=== PATIENT | female | born 1965 | race Caucasian/White ===

== ENCOUNTER 2017-08-01 04:30 | Emergency (ER) | payer MEDICAID, OTHER ==
[~2017-08-01] VITALS: Ht 157.5 cm; Wt 104.3 kg
[2017-08-01 04:30] VITALS: BP 122/82
[~2017-08-01 04:30] MED LIST: ALBUTEROL SULF8.5 GM INH; ATIVAN0.5 MG ORAL; EMBRIL SQ; NORCO 5-325 TA1 EACH ORAL; TRAZODONE HCL100 MG ORAL
[2017-08-01] MEDS ORDERED: HYDROmorphone 1mg/ml Carpuject IVP ONE (04:45)
[2017-08-01 05:01] LABS: BASOPHILS % (AUTO) 0.8 % (0.0-2.0); EOSINOPHILS % (AUTO) 1.7 % (0.0-3.0); HEMATOCRIT 44.4 % (37.0-47.0); HEMOGLOBIN 15.6 G/DL (12.0-16.0); LYMPHOCYTES % (AUTO) 38.4 % (20.0-45.0); MEAN CORPUSCULAR VOLUME 96 FL (80-99); MONOCYTES % (AUTO) 7.6 % (1.0-10.0); NEUTROPHILS % (AUTO) 51.5 % (45.0-75.0); PLATELET COUNT 221 K/UL (150-450); RED BLOOD COUNT 4.62 M/UL (4.20-5.40); RED CELL DISTRIBUTION WIDTH 10.4 % (11.6-14.8)
[2017-08-01 05:05] LABS: APPEARANCE,URINE CLEAR; BILIRUBIN, URINE NEGATIVE (NEGATIVE); COLOR,URINE YELLOW; GLUCOSE, URINE (UA) 4+ (NEGATIVE); KETONES,URINE 1+ (NEGATIVE); LEUKOCYTE ESTERASE ,URINE NEGATIVE (NEGATIVE); NITRITE,URINE NEGATIVE (NEGATIVE); PH,URINE 5 (4.5-8.0); PROTEIN,URINE 2+ (NEGATIVE); UROBILINOGEN,URINE 1 MG/DL (0.0-1.0)
[2017-08-01 05:19] LABS: ANION GAP 9 mmol/L (5-15); BLOOD UREA NITROGEN 10 mg/dL (7-18); CARBON DIOXIDE 25 MMOL/L (21-32); CHLORIDE 106 MMOL/L (98-107); CREATININE 0.7 MG/DL (0.55-1.30); POTASSIUM 3.4 MMOL/L (3.5-5.1); SODIUM 140 MMOL/L (136-145)
[2017-08-01 05:23] LABS: ALANINE AMINOTRANSFERASE 93 U/L (12-78); ALBUMIN 3.5 G/DL (3.4-5.0); ALBUMIN/GLOBULIN RATIO 0.6 (1.0-2.7); ALKALINE PHOSPHATASE 116 U/L (46-116); ASPARTATE AMINO TRANSFERASE 66 U/L (15-37); BILIRUBIN,TOTAL 0.4 MG/DL (0.2-1.0)
[2017-08-01 05:30] VITALS: BP 119/78
--- NOTE | 2017-08-01 05:39 | Emergency Room Report ---
History of Present Illness General Chief Complaint: Abdominal Pain Source: Patient Present Illness HPI This is a 51-year-old female with chief complaint abdominal pain with nausea vomiting. His been ongoing for 6 hours. Vomiting is nonbloody nonbilious. Pain is severe and crampy. 10 out of 10. No diarrhea. No fever. Second complaint is she has left forearm pain. She fell 2 weeks ago and has some bruising to the left forearm. Bruising got better but pain still there. No new trauma since then Allergies: Coded Allergies: PENICILLINS (Verified Allergy, Unknown, 02/26/12) Patient History Past Medical History: see triage record, old chart reviewed Past Surgical History: other Pertinent Family History: none Social History: Denies: smoking Last Menstrual Period: UNK Now: No Immunizations: other Reviewed Nursing Documentation: PMH: Agreed, PSxH: Agreed Nursing Documentation-PMH Hx Asthma: Yes Hx Cancer: Yes - cervical Hx Gastrointestinal Problems: Yes - Hep C+ Review of Systems Constitutional: Reports: chills, fever Eye: Denies: eye pain, blurred vision ENT: Denies: ear pain, nose congestion, throat swelling Respiratory: Denies: cough, shortness of breath Cardiovascular: Denies: chest pain, palpitations Gastrointestinal: Reports: abdominal pain, nausea, vomiting, Denies: diarrhea Musculoskeletal: Reports: muscle pain, Denies: joint pain Skin: Denies: rash Neurological: Denies: headache, numbness Endocrine: Denies: increased thirst, increased urine Hematologic/Lymphatic: Denies: easy bruising All Other Systems: negative except mentioned in HPI Physical Exam Vital Signs Date Time Temp Pulse Resp B/P (MAP) Pulse Ox O2 Delivery O2 Flow Rate FiO2 08/01/17 04:16 98.2 106 18 161/109 95 Room Air vitals with high blood pressure Sp02 EP Interpretation: reviewed, normal General Appearance: well appearing, no apparent distress, alert Head: normocephalic, atraumatic Eyes: bilateral eye PERRL, bilateral eye EOMI ENT: hearing grossly normal, normal pharynx Neck: full range of motion, supple, no meningismus Respiratory: chest non-tender, lungs clear, normal breath sounds Cardiovascular #1: regular rate, rhythm, no murmur Gastrointestinal: normal bowel sounds, non tender, no mass, no organomegaly, no bruit, non-distended Musculoskeletal: back normal, gait/station normal, normal range of motion, tender - TTP over left prox forearm laterally. FROM. NVI Psychiatric: mood/affect normal Skin: warm/dry Medical Decision Making Diagnostic Impression: Primary Impression: Abdominal pain Qualified Codes: R10.84 - Generalized abdominal pain Additional Impression: Contusion of forearm, left Qualified Codes: S50.12XA - Contusion of left forearm, initial encounter ER Course Patient present with abdominal pain. No evidence of obstruction. No evidence of acute abdomen. We'll discharge home. She felt better now. No fracture. Lab Results Impression labs unremarkable Other X-Ray Diagnostic Results Other X-Ray Diagnostic Results : X-Ray ordered: X-ray left forearm # of Views/Limited Vs Complete: 2 View Indication: Pain EP Interpretation: Yes Interpretation: no dislocation, no soft tissue swelling, no fractures Impression: No acute disease Electronically Signed by: Gene Stevens MD CT/MRI/US Diagnostic Results CT/MRI/US Diagnostic Results : Imaging Test Ordered: CT abdomen pelvis Impression read by radiologist. No acute process. Last Vital Signs Date Time Temp Pulse Resp B/P (MAP) Pulse Ox O2 Delivery O2 Flow Rate FiO2 08/01/17 04:16 98.2 106 18 161/109 95 Room Air Status: improved Disposition: HOME, SELF-CARE Condition: Stable Scripts Hydrocodone/Acetaminophen 5-325* (HYDROCODONE/ACETAMINOPHEN 5-325*) 1 Each Tablet 1 TAB ORAL Q6H Y for For Pain, #10 TAB 0 Refills Prov: GENE STEVENS M.D. 08/01/17 Patient Instructions: Abdominal Pain, Adult Additional Instructions: Followup with your DrEmili in 3-5 days. Return if symptom worsen. GENE STEVENS M.D. Aug 01, 2017 05:39
[2017-08-01] MEDS ORDERED: Ketorolac 30mg Inj IV ONE (05:45)
[2017-08-01 06:45] VITALS: BP 118/78
[2017-08-01] MEDS ORDERED: HYDROCODON-ACE1 EA15 ORAL (06:48)
[2017-08-01 07:20] VITALS: BP 118/78
--- NOTE | 2017-08-01 09:47 | Diagnostic Imaging Report ---
Indication: Abdominal pain Technique: CT of the abdomen and pelvis utilizing automated exposure control without intravenous or oral contrast. CT dose: Total DLP 1784.48 mGycm; CTDI vol 36.68 mGy Comparison: 12/21/2007 Findings: Please note that evaluation of the abdominal and pelvic viscera is limited without the use of intravenous and oral contrast. Within these limitations, the following observations are made: Dependent atelectasis noted in the lung bases. Heart partially visualized but appears normal in size. Patient is status post cholecystectomy. Noncontrast evaluation of the liver, spleen, adrenal glands and pancreas is grossly unremarkable. There is no evidence of urinary tract stone or hydronephrosis bilaterally. Bladder unremarkable in appearance. Uterus and adnexa are grossly unremarkable on noncontrast evaluation. There is no bowel obstruction. No free peritoneal fluid or air is seen. No appreciable focal or diffuse abnormal bowel wall thickening however sensitivity is limited without oral contrast. Appendix is normal. There is a small fat-containing umbilical hernia. Question mild thickening of the distal esophagus. Abdominal aorta is normal in caliber with scattered atherosclerotic calcifications. Multilevel degenerative changes noted in the thoracolumbar spine, including marked bilateral L4-L5 facet arthritis and associated mild L4-L5 anterolisthesis. These are unchanged. There is asymmetric sclerosis of the sacroiliac joints, increased on the left. Impression: Limited exam without intravenous or oral contrast. Within these limitations: * No evidence of acute intra-abdominal pathology. * Apparent thickening of the distal esophagus. Correlate clinically. Consider esophagram or direct visualization with endoscopy. * Prior cholecystectomy. * Small fat-containing umbilical hernia. * Sclerosis about the bilateral sacroiliac joints, predominantly on the iliac side of the joint. Joint spaces appear preserved, without erosions or narrowing. Findings may be related to osteitis condensans ilii or sacroiliitis. Correlate clinically. This corresponds with the statrad preliminary report. The CT scanner at [facility] is accredited by the [employer] and the scans are performed using protocols designed to limit radiation exposure to as low as reasonably achievable to attain images of sufficient resolution adequate for diagnostic evaluation.
--- NOTE | 2017-08-01 10:16 | Diagnostic Imaging Report ---
Indication: Trauma Technique: XRAY Forearm 2v L Comparison: None Findings: No acute fracture or dislocation. Imaged no bone restaurants grossly preserved. Mild degenerative change at the first carpometacarpal joint seen. No radiopaque foreign body noted. Impression: No acute fracture or dislocation.
== END 2017-08-01 07:20 | disposition home or self-care (01) ==
LOC: EDBD 04:30 → EMR 05:00
DX: R10.9 Unspecified abdominal pain (principal); R11.2 Nausea with vomiting, unspecified; Z85.41 Personal history of malignant neoplasm of cervix uteri; Z88.0 Allergy status to penicillin; K42.9 Umbilical hernia without obstruction or gangrene; Z90.49 Acquired absence of other specified parts of digestive tract
CPT/HCPCS: 36415; 73090; 74176; 80053; 81003; 81025; 83690; 85025; 96374; 96375; 99284; J1170; J1885; J2405